=== PATIENT | male | born 2000 | race Caucasian/White ===

== ENCOUNTER 2018-05-18 20:18 | Emergency (ER) | payer OTHER ==
[~2018-05-18] VITALS: Ht 172.7 cm; Wt 99.8 kg
[~2018-05-18 20:18] MED LIST: AUGMENTIN ES-6100 ML PO; NKHM; ZOFRAN ODT4 MG SL
[2018-05-18 20:20] VITALS: BP 150/82
[2018-05-18] MEDS ORDERED: FLONASE ALLERG9.9 ML NAS (21:50)
[2018-05-18] MEDS ORDERED: PREDNISONE20 M1 PO (21:50)
[2018-05-18] MEDS ORDERED: AMOXICILLIN500 M3 PO (21:50)
== END 2018-05-18 21:52 | disposition home or self-care (01) ==
LOC: ED 20:18
DX: J01.90 Acute sinusitis, unspecified (principal)